=== PATIENT | male | born 1995 | race Caucasian/White ===

== ENCOUNTER 2020-11-10 13:32 | Emergency (ER) | payer BC ==
[~2020-11-10] VITALS: Ht 185.4 cm; Wt 145.1 kg
[2020-11-10] MEDS ORDERED: DEXAMETHASONE 4 MG TAB PO STA (13:40)
[2020-11-10] MEDS ORDERED: KETOROLAC TROMETHAMINE 30 MG/ML VIAL IM STA (13:40)
[2020-11-10] MEDS ORDERED: ACETAMINOPHEN 325 MG TAB PO ONE (13:45)
[2020-11-10] MEDS: LIDOCAINE 4% PATCH TP SCH ×2 (14:02→14:32)
[2020-11-10] MEDS ORDERED: LIDOCAINE 4% PATCH TP STA (14:03)
[2020-11-10] MEDS ORDERED: LIDOPATCH1 EACH TOP (15:11)
[2020-11-10] MEDS ORDERED: FENTANYL CITRATE/PF 100MCG/2 ML INJ IJ ONE (16:00)
[2020-11-10] MEDS ORDERED: CYCLOBENZAPRINE5 MG PO (16:57)
== END 2020-11-10 17:07 | disposition home or self-care (01) ==
LOC: ER 13:50
DX: M54.5 Low back pain (principal); F41.9 Anxiety disorder, unspecified; F32.9 Major depressive disorder, single episode, unspecified; F98.8 Other specified behavioral and emotional disorders with onset usually occurring in childhood and adolescence
CPT/HCPCS: 72131; 99284; J1885; J3010; J8540